=== PATIENT | male | born 1950 | race Caucasian/White ===

== ENCOUNTER 2017-03-16 12:28 | Emergency (ER) | payer OTHER, MEDICAID ==
[~2017-03-16] VITALS: Ht 167.6 cm; Wt 74.8 kg
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
--- NOTE | 2017-03-16 12:52 | NUR ---
ZAINA BUTTER PRINTER AT BEDSIDE FOR EVAL.
[2017-03-16] MEDS ORDERED: LORAZEPAM INJ 2 MG/ML VIAL IV ONE (13:00)
[2017-03-16 13:12] LABS: BASOPHILS # (AUTO) 0.1 /CMM (0.0-0.2); BASOPHILS % (AUTO) 0.7 % (0.0-2.0); EOSINOPHILS # (AUTO) 0.2 /CMM (0.0-0.7); EOSINOPHILS % (AUTO) 2.4 % (0.0-6.0); HEMATOCRIT 41 % (39-51); HEMOGLOBIN 13.6 g/dL (13.5-17.5); LYMPHOCYTES # (AUTO) 1.8 /CMM (0.8-4.8); MEAN CORPUSCULAR HEMOGLOBIN 31 PG (26.0-33.0); MEAN CORPUSCULAR HGB CONC 33 g/dl (31.0-36.0); MEAN CORPUSCULAR VOLUME 93 fL (80-96); MONOCYTES % (AUTO) 11.5 % (2.0-12.0); NEUTROPHILS # (AUTO) 5.9 /CMM (1.8-8.9); NEUTROPHILS % (AUTO) 65.4 % (43.0-81.0); PLATELET COUNT (AUTO) 230 /CMM (150-450); RDW COEFFICIENT OF VARIATION 14.2 (11.5-15.0); RED BLOOD CELL COUNT(AUTO) 4.44 MIL/uL (4.5-6.0)
[2017-03-16] MEDS ORDERED: LORAZEPAM INJ 2 MG/ML VIAL ONE (13:20)
[2017-03-16 13:24] LABS: CALCIUM, SERUM 7.7 mg/dL (8.5-10.1); CREATININE 0.9 mg/dL (0.6-1.3); POTASSIUM 3.8 mmol/L (3.5-5.1)
[2017-03-16 13:30] LABS: ALBUMIN 3.5 g/dL (3.4-5.0); BILIRUBIN,DIRECT 0.2 mg/dL (0.0-0.2); BILIRUBIN,TOTAL 0.4 mg/dL (0.2-1.0); TOTAL PROTEIN, SERUM 8.2 g/dL (6.4-8.2)
[2017-03-16 13:31] LABS: SALICYLATE 1.5 mg/dL (2.8-20.0)
--- NOTE | 2017-03-16 14:06 | NUR ---
PT COMPATIVE, ER WILL CALL WHEN READY.
--- NOTE | 2017-03-16 19:00 | NUR ---
PT RESTING LEFT LATERAL ASLEEP. AWAKENS TO NAME. TURNS OVER AND RETURNS TO SLEEP. PT CLEANED AND DRESSED IN CLEAN DISPOSABLE CLOTHES BY DAY SHIFT STAFF. VSS, NAD NOTED.
--- NOTE | 2017-03-16 21:00 | NUR ---
ATTEMPTED TO AMBULATE PT. PT'S GAIT REMAINS UNSTEADY AT THIS TIME. PT REQUESTS TO RETURN TO SLEEP. GIVEN WARM BLANKET. VSS, NAD NOTED.
--- NOTE | 2017-03-16 23:30 | NUR ---
Patient given written and verbal discharge instructions. Patient verbalizes understanding of instructions. Patient is ambulatory with steady gait. Refuses offer of alf placement. Patient given list of available shelters in surrounding area. VSS, NAD noted on DC. Denies complaint on DC.
[2017-03-16 23:38] VITALS: BP 124/77
== END 2017-03-16 23:47 | disposition home or self-care (01) ==
LOC: ER 12:31
DX: F10.129 Alcohol abuse with intoxication, unspecified (principal)
CPT/HCPCS: 36415; 80048; 80076; 80329; 84484; 85025; 93005; 96374; 99285; A4606; G0480 ×2; J2060; Z7610

== ENCOUNTER 2019-04-04 19:59 | Emergency (ER) | payer MEDICARE, MEDICAID ==
[~2019-04-04] VITALS: Ht 167.6 cm; Wt 73.5 kg
[2019-04-04 20:01] VITALS: BP 123/72
--- NOTE | 2019-04-04 20:49 | NUR ---
FABRICE ADAN AND ER CHARTERED ACCOUNTANT AT BEDSIDE TO [facility]ÓN[facility] JAURE[facility].
[2019-04-04] MEDS ORDERED: LIDOCAINE VISCOUS 2% UD 15 ML UDC ONE (20:54)
[2019-04-04] MEDS ORDERED: LIDOCAINE VISCOUS 2% UD 15 ML UDC MM ONE (21:00)
[2019-04-04] MEDS ORDERED: HYDROCODONE/APAP 5/325MG 1 EACH TABLET PO ONE (21:30)
[2019-04-04] MEDS ORDERED: AMOXICILLIN TRIHYDRATE 250 MG CAPSULE PO ONE (21:30)
[2019-04-04] MEDS ORDERED: AMOXICILLIN TRIHYDRATE 250 MG CAPSULE ONE (21:35)
[2019-04-04] MEDS ORDERED: HYDROCODONE/APAP 5/325MG 1 EACH TABLET ONE (21:35)
--- NOTE | 2019-04-04 21:40 | NUR ---
PT MEDICATED ORDERED.
== END 2019-04-04 22:35 | disposition home or self-care (01) ==
LOC: ER 20:13
DX: K04.7 Periapical abscess without sinus (principal); Z98.890 Other specified postprocedural states